=== PATIENT | male | born 1965 | race Native Hawaiian/Other Pacific Islander ===

== ENCOUNTER 2021-05-25 15:06 | Emergency (ER) | payer BC ==
[~2021-05-25] VITALS: Ht 167.6 cm; Wt 81.6 kg
[2021-05-25 15:10] VITALS: TEMP 98.1
[2021-05-25 15:55] VITALS: BP 130/76
== END 2021-05-25 15:55 | disposition home or self-care (01) ==
LOC: ED 15:06
DX: S61.432A Puncture wound without foreign body of left hand, initial encounter (principal); W45.0XXA Nail entering through skin, initial encounter; Y92.89 Other specified places as the place of occurrence of the external cause
CPT/HCPCS: 90471; 90715; 96372; 99283; J0696